=== PATIENT | male | born 1995 | race Caucasian/White ===

== ENCOUNTER 2017-11-12 11:04 | Emergency (ER) | payer OTHER ==
[2017-11-12 11:33] VITALS: BP 127/80
--- NOTE | 2017-11-12 12:05 | XRAY Report ---
EXAM: LEFT KNEE RADIOGRAPHY EXAM DATE: 11/12/2017 11:49 AM. CLINICAL HISTORY: Limited rom denies injury. COMPARISON: None. TECHNIQUE: 4 views. FINDINGS: Bones: Normal. No fractures or bone lesions. Joints: Normal. No effusion. No subluxations. Soft Tissues: Normal. No soft tissue swelling. IMPRESSION: Normal knee radiography. [facility] Referring Provider Line: [phone] SITE ID: [id number]
--- NOTE | 2017-11-12 13:15 | ED Physician Documentation ---
PD HPI LOWER EXT INJURY - Stated complaint Stated Complaint: KNEE PX - Chief complaint Chief Complaint: Ext Problem - History obtained from History obtained from: Patient - History of Present Illness PD HPI LOW EXT INJURY LOCATION: Right, Knee Type of injury: No: Fall, Twist (he was just crouched down and felt that his knee was stuck flexed. He straightened it out with a pop and then it was hurting and he cannot get it fully straight without pain. He has had it stick flexed several times in the past and he would be able to push his left straight and it would pop, hurt and then be okay after a few minutes.) Timing - onset: Today Timing - details: Abrupt onset, Still present Worsened by: Other (walking on it and full extension (can get it to about 10 degrees flexed).) Associated symptoms: No: Weakness, Numbness, Swelling Contributing factors: No: Prior ortho surgery Similar symptoms before: No diagnosis (see above) Recently seen: Not recently seen Review of Systems Constitutional: denies: Fever, Chills Nose: denies: Rhinorrhea / runny nose, Congestion Throat: denies: Sore throat Respiratory: denies: Cough GI: denies: Vomiting, Diarrhea Skin: denies: Rash, Lesions, Abrasion (s) Musculoskeletal: reports: Joint pain PD PAST MEDICAL HISTORY - Past Medical History Past Medical History: No Musculoskeletal: None - Past Surgical History Past Surgical History: No - Present Medications Home Medications: Ambulatory Orders Medication Instructions Recorded Confirmed Ibuprofen [Motrin] 600 mg PO TID #30 tab 11/12/17 - Allergies Allergies/Adverse Reactions: Allergies Allergy/AdvReac Type Severity Reaction Status Date / Time No Known Drug Allergies Allergy Verified 11/12/17 11:33 - Social History Does the pt smoke?: No Smoking Status: Never smoker Does the pt drink ETOH?: Yes Does the pt have substance abuse?: No - Immunizations Immunizations are current?: Yes PD ED PE NORMAL - Vitals Vital signs reviewed: Yes - General General: Alert and oriented X 3, No acute distress, Well developed/nourished - Back Back: No spinal TTP - Derm Derm: Normal color, Warm and dry - Extremities Extremities: Other (right knee with tenderness along medial joint line, which shifts location with flexion (c/w meniscal). No effusion noted. Basic ligament testing without laxity. Some mild pain with MCL stretch. Mostly hurts with medial meniscal loading (Jaky type test). Pain with full extension and it seems to softly hit resistance when gets to about 10 degrees flexion. Hurts a lot and he has guarding as well toward full extension. ) - Neuro Neuro: Alert and oriented X 3, No motor deficit, No sensory deficit, Normal speech Results - Vitals Vitals: Oxygen O2 Source Room air - Rads (name of study) right knee Radiology: Prelim report reviewed (no fractures) PD MEDICAL DECISION MAKING - ED course Complexity details: considered differential (seems like torn meniscus and may have small flap but he can get to almost full extension and then hurts, so could be tear with inflammation. More likely stuck flap if he were more flexed stuck. ), d/w patient, d/w [employer] product consultant (Orthopedics on [facility], who said to put in brace and crutches and he will have PCP see him and also he will arrange MRI of the knee. Not an emergent indication for MRI so will get it outpt and see him in next few days. He did not think it is a "stuck" flap if he can get to almost full extension. Likely a torn piece just displaced and likely will need scoping after MRI. ) Departure - Departure Disposition: 01 Home, Self Care Clinical Impression: Acute meniscal injury of left knee Qualifiers: Encounter type: initial encounter Qualified Code(s): S83.8X2A - Sprain of other specified parts of left knee, initial encounter Condition: Stable Record reviewed to determine appropriate education?: Yes Instructions: ED Meniscal Injury Knee Poss Follow-Up: [facility] Dylan Berman [Provider Group] Prescriptions: Ibuprofen [Motrin] 600 mg PO TID #30 tab Comments: [place] did sound like a meniscal injury. At this point he did not think maneuvering it more would help at the moment but he would give it some time to see if inflammation goes down. Meanwhile he put in a referral for an MRI of the knee. He said to use the crutches and knee brace and see your primary care tomorrow and they would get you an MRI of the knee likely this week and to see him (the orthopedist) after the MRI. Ibuprofen 3 times a day. Rest and elevate the knee often if it develops swelling. Forms: Activity restrictions Discharge Date/Time: 11/12/17 14:33
[2017-11-12] MEDS ORDERED: IBUPROFEN 600 MG TABLET PO STA (13:38)
== END 2017-11-12 14:33 | disposition home or self-care (01) ==
LOC: ED 11:04
DX: S83.8X2A Sprain of other specified parts of left knee, initial encounter (principal); X50.9XXA Other and unspecified overexertion or strenuous movements or postures, initial encounter
CPT/HCPCS: 73564; 99283; A9270